=== PATIENT | female | born 1960 | race Caucasian/White ===

== ENCOUNTER 2017-03-04 21:29 | Emergency (ER) | payer BC ==
[~2017-03-04] VITALS: Ht 167.6 cm; Wt 88.4 kg
[2017-03-04 21:29] VITALS: BP 177/91; TEMP 97.6
[~2017-03-04 21:29] MED LIST: CEPHALEXIN500 M1 PO; NEXIUM 20MG CAP20 MG PO; NORCO 325 MG-51 TAB PO; NORCO 325 MG-7.1 TAB PO; PHENERGAN 25 TA25 MG PO; PRILOSEC20 M1 PO; SYNTHROID0.112 MG/T PO; SYNTHROID0.125 MG PO; VALTREX; VITAMIN B COMPL1 T16; VITAMIN D32000 I1 PO
[2017-03-04] MEDS ORDERED: NORCO 325 MG-7.1 TAB PO (23:10)
[2017-03-04] MEDS ORDERED: CEPHALEXIN500 M1 PO (23:10)
[2017-03-04 23:48] VITALS: PULSE 93
== END 2017-03-04 23:54 | disposition home or self-care (01) ==
LOC: COL.ER 21:29
DX: S69.91XA Unspecified injury of right wrist, hand and finger(s), initial encounter (principal); S61.411A Laceration without foreign body of right hand, initial encounter; F17.210 Nicotine dependence, cigarettes, uncomplicated; Z23 Encounter for immunization; W26.0XXA Contact with knife, initial encounter; Y92.009 Unspecified place in unspecified non-institutional (private) residence as the place of occurrence of the external cause

== ENCOUNTER → 2017-08-29 | Outpatient (CLI) | payer BC ==
[~2017-08-29] VITALS: Ht 167.6 cm; Wt 89.8 kg
[2017-08-29 08:52] VITALS: BP 128/78; PULSE 67
== END ==
LOC: COL.CARD 08:41
DX: R07.89 Other chest pain (principal)
CPT/HCPCS: A9502

== ENCOUNTER → 2019-02-26 | Outpatient (CLI) | payer BC | LOC: MC.RAD 07:22 | DX: Z12.31 Encounter for screening mammogram for malignant neoplasm of breast (principal) ==

== ENCOUNTER → 2020-05-20 | Outpatient (CLI) | payer BC | LOC: MC.RAD 07:00 | DX: Z12.31 Encounter for screening mammogram for malignant neoplasm of breast (principal) ==

== ENCOUNTER 2020-12-29 12:41 | Emergency (ER) | payer BC ==
[~2020-12-29] VITALS: Ht 167.6 cm; Wt 76.4 kg
[2020-12-29 12:54] VITALS: BP 129/83; PULSE 68; TEMP 98
== END 2020-12-29 14:10 | disposition left against medical advice (07) ==
LOC: COL.ER 12:41
DX: R10.9 Unspecified abdominal pain (principal)

== ENCOUNTER → 2021-08-03 | Outpatient (CLI) | payer BC | LOC: MC.RAD 07:55 | DX: Z12.31 Encounter for screening mammogram for malignant neoplasm of breast (principal) ==